=== PATIENT | female | born 1995 | race African-American/Black ===

== ENCOUNTER 2020-04-21 00:12 | Emergency (ER) | payer OTHER ==
--- NOTE | 2020-04-21 00:32 | ER Document Report ---
ED Medical Screen (RME) - General Chief Complaint: Abdominal Pain Stated Complaint: SHARP LOWER ABDOMINAL PAIN Time Seen by Provider: 04/21/20 00:22 Mode of Arrival: Wheelchair Information source: Patient Notes: 24-year-old female presented to ED for complaint of abdominal pain that was very sharp for about 3 days. She states it went away she was feeling better so she went to ED tonight. She states she ate steak and fries. She states after eating she came home and she had very sharp painful lower abdominal pain. She states her pain is sharp cramping and level 5/5. She states her last menstrual period was March 07 and she is late. She states she did have a very hard bowel movement about an hour ago. She states she does not smoke she drinks weekly just wine and does not use any illicit drugs. She states she does live with her family. Only medical history is asthma. She denies any past surgeries. I have greeted and performed a rapid initial assessment of this patient. A comprehensive ED assessment and evaluation of the patient, analysis of test results and completion of medical decision making process will be conducted by an additional ED providers. Past Medical History - Social History Chew tobacco use (# tins/day): No Frequency of alcohol use: Occasional Drug Abuse: None Physical Exam - Vital signs Vitals: Temp Pulse Resp BP Pulse Ox 98.4 F 92 14 107/67 97 04/21/20 00:19 04/21/20 00:19 04/21/20 00:19 04/21/20 00:19 04/21/20 00:19 Course - Vital Signs Vital signs: Temp Pulse Resp BP Pulse Ox 98.4 F 92 14 107/67 97 04/21/20 00:24 04/21/20 00:19 04/21/20 00:19 04/21/20 00:19 04/21/20 00:19
[2020-04-21 01:17] LABS: APPEARANCE,URINE SLIGHTLY-CLOUDY; BILIRUBIN,URINE NEGATIVE (NEGATIVE); COLOR,URINE YELLOW; GLUCOSE, URINE NEGATIVE (NEGATIVE); KETONES,URINE NEGATIVE (NEGATIVE); LEUKOCYTE ESTERASE,URINE LARGE (NEGATIVE); NITRITE,URINE NEGATIVE (NEGATIVE); PROTEIN,URINE 100 mg/dL (NEGATIVE); URINE SPECIFIC GRAVITY 1.024
[2020-04-21 02:11] LABS: ABSOLUTE EOSINOPHILS # (AUTO) 0.1 10^3/uL (0.0-0.6); HEMATOCRIT 33.3 % (36.0-47.0); TOTAL CELLS COUNTED % (AUTO) 100 %
[2020-04-21 02:17] LABS: ABSOLUTE LYMPHOCYTES (AUTO) 1.6 10^3/uL (0.5-4.7); ABSOLUTE MONOCYTES (AUTO) 0.6 10^3/uL (0.1-1.4); ABSOLUTE NEUT (AUTO) 3.9 10^3/uL (1.7-8.2); BASOPHILS % (AUTO) 0.8 % (0-2); EOSINOPHILS % (AUTO) 2.1 % (0-6); HEMOGLOBIN 11.1 g/dL (12.0-15.5); MEAN CORPUSCULAR HEMOGLOBIN 29.6 pg (27.0-33.4); MEAN CORPUSCULAR HGB CONC 33.4 g/dL (32.0-36.0); MEAN CORPUSCULAR VOLUME 89 fl (80-97); MONOCYTES % (AUTO) 9.6 % (3-13); PLATELET COUNT 246 10^3/uL (150-450); RED BLOOD COUNT 3.75 10^6/uL (3.72-5.28); RED CELL DISTRIBUTION WIDTH 15.1 % (11.5-14.0); SEGMENTED NEUTROPHILS % (AUTO) 62.5 % (42-78); WHITE BLOOD COUNT 6.3 10^3/uL (4.0-10.5)
[2020-04-21 02:29] LABS: ALBUMIN 4.2 g/dL (3.5-5.0); ALKALINE PHOSPHATASE 65 U/L (38-126); ANION GAP 10 (5-19); ASPARTATE AMINO TRANSFERASE 33 U/L (14-36); BILIRUBIN,DIRECT 0.1 mg/dL (0.0-0.4); BILIRUBIN,TOTAL 0.9 mg/dL (0.2-1.3); BLOOD UREA NITROGEN 15 mg/dL (7-20); CARBON DIOXIDE 26 mmol/L (22-30); CHLORIDE 102 mmol/L (98-107); GLUCOSE 100 mg/dL (75-110); POTASSIUM 4.6 mmol/L (3.6-5.0); TOTAL PROTEIN 7.5 g/dL (6.3-8.2)
--- NOTE | 2020-04-21 02:53 | ER Document Report ---
ED GI/ - General Chief Complaint: Abdominal Pain Stated Complaint: SHARP LOWER ABDOMINAL PAIN Time Seen by Provider: 04/21/20 00:22 Primary Care Provider: [facility] [Provider Group] - Follow up as needed Mode of Arrival: Wheelchair Information source: Patient, Relative Notes: Patient is a 24 a female comes emergency room with a 4-hour onset of abdominal discomfort mostly suprapubic and discomfort with urination. Patient states her last menstrual period was about March 07, 2020 she currently is taking no control and denies having any surgeries in the abdomen previously. She is primarily worried about although she does state that she has dysuria and burning with urination. And is stated denies any discharge. She has been with her current for the past 5 years. Patient states she is not worried about any STDs. TRAVEL OUTSIDE OF THE [place] IN LAST 30 DAYS: No - HPI Patient complains to provider of: Dysuria. No: Flank pain, Pelvic pain, Vaginal discharge, Vaginal pain Onset: Other - 4 hours ago Timing/Duration: Sudden Quality of pain: Achy Severity at maximum: Mild Severity in ED: Mild Pain Level: 1 Location: Suprapubic Vaginal bleeding (Compared to normal period): None Menstrual period history: Missed LMP: March 07, 2020 Past Medical History - General Information source: Patient - Social History Smoking Status: Never Smoker Chew tobacco use (# tins/day): No Frequency of alcohol use: Occasional Drug Abuse: None Lives with: Family Family History: Reviewed & Not Pertinent Patient has homicidal ideation: No Review of Systems - Review of Systems Constitutional: No symptoms reported EENT: No symptoms reported Cardiovascular: No symptoms reported Respiratory: No symptoms reported Gastrointestinal: See HPI. denies: Abdominal pain, Diarrhea, Nausea, Vomiting, Constipation Genitourinary: See HPI, Dysuria Female Genitourinary: denies: Vaginal bleeding Musculoskeletal: No symptoms reported Skin: No symptoms reported Hematologic/Lymphatic: No symptoms reported Neurological/Psychological: No symptoms reported Physical Exam - Vital signs Vitals: Temp Pulse Resp BP Pulse Ox 98.4 F 92 14 107/67 97 04/21/20 00:19 04/21/20 00:19 04/21/20 00:19 04/21/20 00:19 04/21/20 00:19 Interpretation: Normal - Notes Notes: PHYSICAL EXAMINATION: GENERAL: Well-appearing, well-nourished and in no acute distress. HEAD: Atraumatic, normocephalic. NECK: Normal range of motion, supple without lymphadenopathy LUNGS: Breath sounds clear to auscultation bilaterally and equal. No wheezes rales or rhonchi. HEART: Regular rate and rhythm without murmurs ABDOMEN: Soft, nontender, nondistended abdomen. No guarding, no rebound. No masses appreciated. Patient does however display some moderate amount of tenderness to palpation suprapubically. Female : deferred Musculoskeletal: Normal range of motion, no pitting or edema. No cyanosis. NEUROLOGICAL: . Normal speech, normal gait. Normal sensory, motor exams PSYCH: Normal mood, normal affect. SKIN: Warm, Dry, normal turgor, no rashes or lesions noted. Course - Re-evaluation Re-evalutation: 04/21/20 06:26 It appears that patient's primary concern was that she is 10 days late on starting her period and she was concerned she was . She was relieved to find out she was not however she does have a urinary tract infection so we will treat her with antibiotics. - Vital Signs Vital signs: Temp Pulse Resp BP Pulse Ox 98.3 F 93 17 99/62 L 99 04/21/20 03:22 04/21/20 03:22 04/21/20 03:22 04/21/20 03:22 04/21/20 03:22 - Laboratory Result Diagrams: 04/21/20 01:59 04/21/20 01:59 Laboratory results interpreted by me: 04/21/20 04/21/20 00:50 01:59 Hgb 11.1 L Hct 33.3 L RDW 15.1 H Urine Protein 100 H Urine Urobilinogen 2.0 H Ur Leukocyte Esterase LARGE H Discharge - Discharge Clinical Impression: Urinary tract infection Qualifiers: Urinary tract infection type: site unspecified Hematuria presence: without hematuria Qualified Code(s): N39.0 - Urinary tract infection, site not specified Condition: Stable Disposition: HOME, SELF-CARE Instructions: Antispasmodics ([facility]), Cephalexin ([facility]), Urinary Tract Infection ([facility]) Additional Instructions: Home and rest. Increase fluids but avoid fluids and foods high in sugar cont ent. Contact your primary care for follow-up in 7 to 10 days for recheck of your urine. Your urine came back as negative as well. If you are continuing to have a dysfunctional type of a. You should follow-up with your [facility]. Should have any other concerns or problems you return to ER for reevaluation. Prescriptions: Cephalexin Monohydrate [Keflex 500 mg Capsule] 500 mg PO BID 5 Days #14 capsule Phenazopyridine HCl [Pyridium 200 mg Tablet] 200 mg PO TID #15 tablet Referrals: [facility] [Provider Group] - Follow up as needed
[2020-04-21 03:24] VITALS: BP 99/62
== END 2020-04-21 03:22 | disposition home or self-care (01) ==
LOC: ER 00:12
DX: N39.0 Urinary tract infection, site not specified (principal)
CPT/HCPCS: 36415; 80053; 81001; 83690; 84702; 85025; 87086; 99283